=== PATIENT | male | born 1980 | race Caucasian/White ===

== ENCOUNTER 2024-12-24 22:13 | Emergency (ER) | payer MEDICARE, MEDICAID ==
[~2024-12-24] VITALS: Ht 172.7 cm; Wt 75.0 kg
[2024-12-24 22:27] VITALS: TEMP 97.9
[2024-12-25] MEDS: FAMOTIDINE 20 MG TABLET PO ONE (01:11)
[2024-12-25 01:26] LABS: GLUCOMETER DEV NAME(LOC) ER.7; GLUCOSE,POINT OF CARE 102 MG/DL (70-110)
[2024-12-25] MEDS ORDERED: PRED-554 PO (02:08)
[2024-12-25 02:27] VITALS: BP 129/69; PULSE 75; RESP 16; O2SAT 98
== END 2024-12-25 02:39 | disposition home or self-care (01) ==
LOC: EMS 22:15
DX: R21 Rash and other nonspecific skin eruption (principal)
CPT/HCPCS: 99284; 82962; J7512